=== PATIENT | male | born 1945 | race Caucasian/White ===

== ENCOUNTER 2016-12-24 12:27 | Outpatient (CLI) | payer OTHER ==
[2013-01-04 12:11] VITALS: TEMP 96.4
[2013-11-07 16:46] VITALS: BMI 23.6
--- NOTE | 2016-12-24 13:12 | DI ---
EXAM: Two views of the chest. History: Cough. Comparison: Chest radiograph 11/08/2013 Findings: Heart size is normal. No focal consolidation. No appreciable pleural fluid and no pneum othorax. No acute osseous abnormalities. Impression: No acute cardiopulmonary process.
== END 2016-12-24 12:28 | disposition home or self-care (01) ==
LOC: RAD 12:27
PROVIDERS: ATTEND Internal Medicine
DX: R05 Cough (principal); F17.210 Nicotine dependence, cigarettes, uncomplicated

== ENCOUNTER 2017-10-30 06:42 | Outpatient (CLI) | payer OTHER ==
[2013-01-04 12:11] VITALS: TEMP 96.4
[2013-11-07 16:46] VITALS: BMI 23.6
--- NOTE | 2017-10-30 12:39 | STRESSECHO ---
Date of Test: 10/30/17 Reason for Exam: CHEST PAIN, HYPERTENSION Ordering Physician: DR. NAT HERNANDEZ Current Medications: LISINOPRIL, HCTZ Physical Findings: S1, S2, NO S3 Resting EKG: SINUS RHYTHM/ NO ACUTE CHANGES Target Heart Rate: 127/150 S-T SEGMENT STAGE MPH/GRADE HEART RATE BPM BLOOD PRESSURE MMHG RHYTHM +/- ELEVATION DEPRESSION SYMPTOMS,COMMENTS At Rest 57 118/80 SR X NONE 1 1.7/10% 110 148/80 SR X NONE 2 2.5/12% 3 3.4/14% 4 4.2/16% 5 5.0/18% Immediately after 135 SR X SHORT OF AIR Durations of Exercise: 4:30 Maximum Heart Rate Reached: 135 Reason for Termination: SHORT OF AIR 2 MINUTES POST EXERCISE: HR 80 BPM, BP 162/98 MMHG, SR, +/-, NO COMMENTS 4 MINUTES POST EXERCISE: HR 60 BPM, BP 138/70 MMHG, SR, +/-, NO COMMENTS INTERPRETATION: 97% OXYGEN SATURATION WITH EXERCISE ON ROOM AIR METS 7.0 1. NO EVIDENCE OF ISCHEMIA BY ST-T WAVE 2. NO CHEST PAIN OR DISCOMFORT OR TIGHTNESS 3. FEW PAC'S AND PVC'S NOTED 4. BLOOD PRESSURE RESPONSE: HYPERTENSION WITH EXERCISE NORMAL LEFT VENTRICULAR CONTRACTILITY--RESTING AND POST EXERCISE MTDD
--- NOTE | 2017-10-30 12:41 | ECHOSTRESS ---
Date of Exam: 10/30/17 Ordering Physician: DR. NAT HERNANDEZ Reason for Echo: CHEST PAIN, STRESS TEST--NO ISCHEMIA M-Mode Normal Adult Results LV Dimensions Normal Adult Results AoV Opening excursions >1.6 LVEDD-base- 3.5-5.8 Ao root dimensions 2.0-3.7 LVESD-base- 3.1-4.6 L. Atrium dimensions 1.9-3.8 Post. Wall thickness 0.8-1.1 IV septum (thickness) 0.7-1.2 Post. Wall excursion 0.72-1.3 Septal motion Systolic motion R. Ventricular cavity 1.5-2.0 LVEF 60% Paradoxical septal wall motion 2-D: NORMAL LEFT VENTRICULAR CONTRACTILITY--RESTING AND POST EXERCISE M-MODE: MV: AV: TV: PV: CHAMBER SIZE: WALL MOTION: NORMAL LEFT VENTRICULAR CONTRACTILITY--RESTING AND POST EXERCISE PERICARDIUM: INTERPRETATION: 1. NORMAL LEFT VENTRICULAR CONTRACTILITY--RESTING AND POST EXERCISE MTDD
== END 2017-10-30 06:43 | disposition home or self-care (01) ==
LOC: CAR 06:42
PROVIDERS: ATTEND Internal Medicine
DX: R07.9 Chest pain, unspecified (principal)

== ENCOUNTER 2017-11-08 06:39 | Outpatient (CLI) | payer OTHER ==
[2013-01-04 12:11] VITALS: TEMP 96.4
[2013-11-07 16:46] VITALS: BMI 23.6
--- NOTE | 2017-11-08 13:09 | ECHO2D ---
Date of Exam: 11/08/17 Ordering Physician: DR. NAT HERNANDEZ Room #: OP Reason for Echo: CHEST PAIN M-Mode Normal Adult Results LV Dimensions Normal Adult Results AoV Opening excursions >1.6 >1.6 LVEDD-base- 3.5-5.8 4.3 Ao root dimensions 2.0-3.7 3.5 LVESD-base- 3.1-4.6 L. Atrium dimensions 1.9-3.8 4.0 Post. Wall thickness 0.8-1.1 1.2 IV septum (thickness) 0.7-1.2 1.2 Post. Wall excursion 0.72-1.3 NORMAL Septal motion NORMAL Systolic motion R. Ventricular cavity 1.5-2.0 NORMAL LVEF 60% 50 TO 55% Paradoxical septal wall motion NORMAL 2-D : 2-D M Mode Echocardiogram was performed using apical four chamber and left parasternal long and short axis views. Mitral, tricuspid and aortic valves appear to be normal. Contractility of the left ventricle seems to be normal, so is the cavity size. Left atrial cavity size and aortic root appear to be normal. There is no pericardial effusion. There is no thrombus noted in the left ventricular or left aortic cavity. No mitral valve prolapse noted. M-MODE: MV: NORMAL AV: NORMAL TV: NORMAL PV: CHAMBER SIZE: BORDERLINE LEFT ATRIAL CAVITY WALL MOTION: NORMAL PERICARDIUM: NORMAL INTERPRETATION: 1. BORDERLINE LEFT VENTRICULAR HYPERTROPHY WITH BORDERLINE LEFT ATRIAL CAVITY ENLARGEMENT 2. NORMAL LEFT VENTRICULAR CONTRACTILITY 3. NORMAL VALVES MTDD
== END 2017-11-08 06:40 | disposition home or self-care (01) ==
LOC: CAR 06:39
PROVIDERS: ATTEND Internal Medicine
DX: R07.89 Other chest pain (principal)

== ENCOUNTER 2022-12-07 11:45 | Observation (INO) ==
[2022-12-07 11:51] VITALS: BMI 27.8
[2022-12-07 13:09] LABS: BASOPHILS % (AUTO) 0.2 % (0.0-3.0); HEMATOCRIT 47.1 % (42.0-52.0); IMMATURE GRANULOCYTE # (AUTO) 0.1 (0.0-1.0); IMMATURE GRANULOCYTE % (AUTO) 0.5 % (0.0-5.0); LYMPHOCYTES # (AUTO) 1.4 K/uL (0.60-3.4); LYMPHOCYTES % (AUTO) 14.9 (10.0-50.0); MEAN CORPUSCULAR HEMOGLOBIN 33.7 pg (27.0-31.0); MEAN CORPUSCULAR HGB CONC 36.1 (31.8-35.4); MEAN CORPUSCULAR VOLUME 93.3 fl (80.0-94.0); MONOCYTES # (AUTO) 0.2 K/uL (0.4-2.0); MONOCYTES % (AUTO) 2.2 (0-10); NEUTROPHILS # (AUTO) 7.5 K/ul (2.0-6.9); NEUTROPHILS % (AUTO) 82.2 % (42.2-75.2); PLATELET COUNT 289 10^3/uL (140-440); RDW COEFFICIENT OF VARIATION 11.7 % (11.6-14.8); RED BLOOD COUNT 5.05 10^6/ul (4.70-6.10); WHITE BLOOD COUNT 9.14 K/ul (4.2-10.2)
--- NOTE | 2022-12-07 13:15 | ED.PDOC ---
General ED Provider: Dr. JACK GREENBERG MD Chief Complaint: Fever Stated Complaint: fever Time Seen by Provider: 12/07/22 12:15 Information Source: Patient Primary Care Provider: NAT HERNANDEZ MD Nursing and Triage Documentation Reviewed and Agree: Yes Does patient meet sepsis criteria?: No System Inflammatory Response Syndrome: Not Applicable Sepsis Protocol: For patient's 13 years and over: Temp is 96.8 and below OR 101 and greater Pulse >90 BPM Resp >20/minute Acutely Altered Mental Status Are patient's symptoms suggestive of a new infection, such as: -Pneumonia -Skin, Soft Tissue -Endocarditis -UTI -Bone, Joint Infection -Implantable Device -Acute Abdominal Infection -Wound Infection -Meningitis -Blood Stream Catheter Infection -Unknown Miscellaneous Complaint Exam Febrile Illness/Adult Complaint/Exam Onset/Duration: ~3-4 days Symptoms Are: Still present Timing: Constant Highest Temperature Recorded: tactile Initial Severity: Mild Current Severity: Moderate Aggravating: Reports None Alleviating: Reports None Associated Signs and Symptoms: Reports Sore throat, Nausea, Vomiting, Chills and Diaphoresis Related History: Reports Similar episode (diverticulitis, 10-15 years ago ) Pseudomonas Risk Factors: Reports Chronic Lung Disease Serious Bacterial Infection Risk Factors: Reports None Current Antibiotic Use: No Last Time and Dose of Tylenol (acetaminophen): no Last Time and Dose of Motrin (ibuprofen): no Related Surgical History: None Differential Diagnoses: Abdominal Infection, Abdominal Abscess, Bacteremia, Fever of Unknown Origin, GI Disease, Neoplasm, Pneumonia, Pyelonephritis, Sepsis and Viremia Review of Systems Review Of Systems Constitutional: Reports Chills, Diaphoresis, Fever, Malaise, Weakness, Sweats and Loss of appetite Ears, Nose, Mouth, Throat: Reports Throat pain GI: Reports Abdominal pain, Diarrhea, Nausea, Poor appetite and Vomiting Neurological: Reports Weakness (generalized) All Other Systems: Reviewed and Negative [facility] Medical History Elevated liver function tests R79.89 - Other specified abnormal findings of blood chemistry (ICD-10) SOB (shortness of breath) on exertion R06.02 - Shortness of breath (ICD-10) Urolithiasis N20.9 - URINARY CALCULUS, UNSPECIFIED (ICD-10) Family History FATHER Cardiac abnormality Alzheimer's dementia Mother Myocardial infarction Social History Smoking and tobacco status: Former smoker Quit date: 07/08/18 Tobacco: How many years used: 15 Alcohol intake: former Substance use type: does not use Special amilcar needs: No Agree to transfusion: Yes Adopted: No Caregiver/support person: No Foster care: No Household members: spouse Housing: house Marital status: M Lives independently: Yes Number of children: 2 service: Yes status: retired branch: [employer] retirement: No Current occupational status: retired Current occupational exposures/hazards: No History of recent travel: No Sexually active: No Current gender identity: male Seatbelt use: always Helmet use: No Drives intoxicated or rides with intoxicated set key driver: No Water heater temperature set < 120 degrees: Yes Working smoke detector in home: Yes Fire extinguisher in home: Yes Carbon monoxide detector in home: Yes Surgical History History of back surgery Z98.890 - Other specified postprocedural states (ICD-10) History of total right hip replacement Z96.641 - Presence of right artificial hip joint (ICD-10) Physical Exam Physical Exam Appearance: Reports Ill-appearing and Well-nourished Ill-appearing: Moderate Pain Distress: None Eyes: Reports TRU, EOMI and Conjunctiva clear ENT: Reports Ears normal and Nose normal Neck: Nonsupple (normal age-appropriate external appearance) Respiratory: Reports Airway patent, Breath sounds clear, Breath sounds equal and Respirations nonlabored Cardiovascular: Reports RRR GI/: Reports Soft, Nontender and Bowel sounds normal Musculoskeletal: Reports ROM intact Skin: Reports Warm, Dry and Normal color Neurological: Reports Sensation intact, Motor intact, Cranial nerves intact, Alert and Oriented Psychiatric: Reports Affect appropriate and Mood appropriate Critical Care Note Critical Care Note Total Critical Care Time (mins): 0 Course Course 12/08/22 05:10 12/08/22 05:10 Orders, Labs, Meds: Lab Review 12/07/22 12/07/22 12/07/22 12:55 13:05 14:32 WBC 9.14 RBC 5.05 Hgb 17.0 Hct 47.1 MCV 93.3 MCH 33.7 H MCHC 36.1 H RDW Coeff of Catarina 11.7 Plt Count 289 Immature Gran % (Auto) 0.5 Neut % (Auto) 82.2 H Lymph % (Auto) 14.9 [place] % (Auto) 2.2 Eos % (Auto) 0.0 Baso % (Auto) 0.2 Neut # (Auto) 7.5 H Lymph # (Auto) 1.4 [place] # (Auto) 0.2 L Eos # (Auto) 0.0 Baso # (Auto) 0.0 Immature Gran # (Auto) 0.1 Puncture Site Base Excess O2 Saturation ABG pH ABG pCO2 ABG pO2 ABG HCO3 ABG Total CO2 [place] Test Hemoglobin Oxyhemoglobin Carboxyhemoglobin Total Hemoglobin FiO2 % Sodium 136.1 Potassium 4.11 Chloride 96.3 L Carbon Dioxide 19.5 L Anion Gap 24.41 BUN 27.2 H Creatinine 1.84 H Estimated GFR (MDRD) 36.00 BUN/Creatinine Ratio 14.78 Glucose 216.1 H Lactic Acid 5.15 H Calcium 9.87 Magnesium 2.19 Total Bilirubin 1.52 H AST 51.0 ALT 81.1 H Alkaline Phosphatase 105.1 Total Protein 10.01 H Albumin 5.40 H Globulin 4.61 Albumin/Globulin Ratio 1.17 Lipase 64.6 Procalcitonin 0.06 H Urine Color Yellow Urine Clarity Slightly Urine pH 5.0 Ur Specific [place] >=1.030 Urine Protein 2+ H Urine Glucose (UA) Negative Urine Ketones 2+ H Urine Blood Trace-intact H Urine Nitrite Negative Urine Bilirubin 2+ H Urine Urobilinogen 0.2 Ur Leukocyte Esterase Negative Urine Microscopic RBC 10-20 Urine Microscopic WBC 0-2 Ur Squamous Epith Cells 0-2 Urine Bacteria Trace Hyaline Casts 20-30 Urine Mucus 1+ Influ A Molecular Assay Negative by naat Influ B Molecular Assay Negative by naat SARS CoV-2 RNA Rapid TY Negative 12/07/22 12/07/22 18:30 19:28 WBC RBC Hgb Hct MCV MCH MCHC RDW Coeff of Catarina Plt Count Immature Gran % (Auto) Neut % (Auto) Lymph % (Auto) [place] % (Auto) Eos % (Auto) Baso % (Auto) Neut # (Auto) Lymph # (Auto) [place] # (Auto) Eos # (Auto) Baso # (Auto) Immature Gran # (Auto) Puncture Site Rr Base Excess -1.5 O2 Saturation 95.4 ABG pH 7.51 H* ABG pCO2 27.0 L ABG pO2 70.0 L ABG HCO3 21.5 ABG Total CO2 22.3 [place] Test Pos Hemoglobin 1.2 Oxyhemoglobin 94.2 L Carboxyhemoglobin 2.0 H Total Hemoglobin 16.3 FiO2 % 21.0 Sodium Potassium Chloride Carbon Dioxide Anion Gap BUN Creatinine Estimated GFR (MDRD) BUN/Creatinine Ratio Glucose Lactic Acid 2.75 H Calcium Magnesium Total Bilirubin AST ALT Alkaline Phosphatase Total Protein Albumin Globulin Albumin/Globulin Ratio Lipase Procalcitonin Urine Color Urine Clarity Urine pH Ur Specific [place] Urine Protein Urine Glucose (UA) Urine Ketones Urine Blood Urine Nitrite Urine Bilirubin Urine Urobilinogen Ur Leukocyte Esterase Urine Microscopic RBC Urine Microscopic WBC Ur Squamous Epith Cells Urine Bacteria Hyaline Casts Urine Mucus Influ A Molecular Assay Influ B Molecular Assay SARS CoV-2 RNA Rapid TY Orders Category Date Time Status ABG DRAW REQUEST Stat CARDIO 12/07/22 19:28 Completed Saline Lock [ED IV/MEDIPORT/POWERPORT] .ONCE EMERGENCY 12/07/22 14:22 Active ABG COOX Stat LAB 12/07/22 19:28 Completed CBC W/ AUTO DIFF Stat LAB 12/07/22 13:05 Completed CMP [COMPREHENSIVE METABOLIC PANEL] Stat LAB 12/07/22 13:05 Completed COVID [SARS COV-2 RNA RAPID TY] Stat LAB 12/07/22 12:55 Completed FLU A & B MOLECULAR [FLU A/B MOLECULAR] Stat LAB 12/07/22 12:55 Completed LACTIC ACID Stat LAB 12/07/22 13:05 Completed LACTIC ACID Stat LAB 12/07/22 18:30 Completed LIPASE Stat LAB 12/07/22 13:05 Completed PROCALCITONIN Stat LAB 12/07/22 13:05 Completed RAPID STREP SCREEN [MOLECULAR GROUP A STREP] Stat LAB 12/07/22 13:36 Completed URINALYSIS C & S IF INDICATED Stat LAB 12/07/22 14:32 Completed 0.9 % Sodium Chloride [Saline Flush] Meds 12/07/22 14:22 Active 1 syr IVF PRN PRN Ondansetron HCl/Pf [Zofran 4 mg/2 ml] Meds 12/07/22 14:22 Discontinued 4 mg IVP ONCE ONE Promethazine HCl [Phenergan 25 mg/ml Vial] Meds 12/07/22 17:06 Discontinued 25 mg IM ONCE ONE Sodium Chloride 0.9% [Sodium Chloride] 1,000 ml Meds 12/07/22 14:22 Discontinued IV BOLUS CHEST, 2 VIEWS PA & LAT Stat RADS 12/07/22 12:[address] ABDOMEN/PELVIS WO CONTRAST Stat RADS 12/07/22 14:23 Completed Medications Generic Name Dose Route Start Last Admin Trade Name Ana PRN Reason Stop Dose Admin Acetaminophen 650 mg 12/07/22 21:16 Acetaminophen 325 Mg Tablet PO Q4H PRN Mild Pain Gabapentin 300 mg 12/08/22 09:00 Gabapentin 300 Mg Capsule PO QID LACY Lactated Ringer's 1,000 mls @ 125 mls/hr 12/07/22 21:30 12/08/22 05:21 Lactated Ringers IV 125 mls/hr .Q8H LACY Administration Mirtazapine 60 mg 12/07/22 21:30 12/07/22 22:15 Mirtazapine 15 Mg Tablet PO 60 mg BEDTIME LACY Administration Ondansetron HCl 4 mg 12/07/22 21:19 12/07/22 22:19 Ondansetron Hcl/Pf 4 Mg/2 Ml Sdv IVP 4 mg Q6H PRN Administration Nausea / Vomiting Sodium Chloride 1 syr 12/07/22 14:22 0.9% Sodium Chloride 10 Ml Disp.Syrin IVF PRN PRN To flush IV Temazepam 30 mg 12/07/22 21:30 12/07/22 22:15 Temazepam 15 Mg Capsule PO 30 mg BEDTIME LACY Administration Discontinued Medications Generic Name Dose Route Start Last Admin Trade Name Ana PRN Reason Stop Dose Admin Sodium Chloride 1,000 mls @ 1,000 mls/hr 12/07/22 14:22 12/07/22 14:54 Sodium Chloride IV 12/07/22 15:21 1,000 mls/hr BOLUS STA Administration Ondansetron HCl 4 mg 12/07/22 14:22 12/07/22 14:54 Ondansetron Hcl/Pf 4 Mg/2 Ml Sdv IVP 12/07/22 14:23 4 mg ONCE ONE Administration Promethazine HCl 25 mg 12/07/22 17:06 12/07/22 17:18 Promethazine Inj 25 Mg/Ml IM 12/07/22 17:07 25 mg ONCE ONE Administration Vital Signs: Temp Pulse Resp BP Pulse Ox 12/07/22 11:48 97.8 F 84 20 158/90 H 97 CXR reports "No acute process". CT Abdomen/Pelvis reported "No acute abnormality in the abdomen or pelvis. Hepatic and left renal cysts. Diverticulosis. Prostatic enlargement. Atherosclerosis. Discharge Plan Discharge Patient Disposition: ADMITTED INPATIENT Discharge Problem: Dehydration Did you review [place] PRICING SPECIALIST for ALL controlled substances?: Not Applicable ED Provider: JACK GREENBERG Physician Progress Note: []
[2022-12-07 13:20] LABS: MOLECULAR FLU A NEGATIVE BY NAAT (NEGATIVE); MOLECULAR FLU B NEGATIVE BY NAAT (NEGATIVE)
[2022-12-07 13:22] LABS: ALANINE AMINOTRANSFERASE 81.1 U/L (0-50); ALBUMIN 5.4 g/dL (3.5-5.0); ALKALINE PHOSPHATASE 105.1 U/L (56-119); BILIRUBIN,TOTAL 1.52 mg/dL (0.2-1.3); BLOOD UREA NITROGEN 27.2 mg/dL (9-20); CALCIUM 9.87 mg/dL (8.4-10.2); CARBON DIOXIDE 19.5 mmol/L (22-30.0); CHLORIDE 96.3 mmol/L (98-107); CREATININE 1.84 mg/dL (0.60-1.10); GLUCOSE 216.1 mg/dL (74-106); LIPASE 64.6 U/L (23-300); POTASSIUM 4.11 mmol/L (3.5-5.1); SODIUM 136.1 mmol/L (134.5-145); TOTAL PROTEIN 10.01 g/dL (6.3-8.2)
--- NOTE | 2022-12-07 13:28 | DI ---
EXAM: FRONTAL AND LATERAL VIEWS OF THE CHEST. HISTORY: Cough. COMPARISON: Chest radiograph 12/24/2016. FINDINGS: Atherosclerotic calcifications of the aorta. Normal heart size. No acute consolidation. No pleural effusion or pneumothorax. No acute osseous abnormality. IMPRESSION: No acute process.
[2022-12-07 14:06] LABS: SARS COV-2 RNA RAPID NAAT NEGATIVE (NEGATIVE)
[2022-12-07] MEDS ORDERED: SODIUM CHLORIDE 1,000 ML IV STA (14:22)
[2022-12-07] MEDS ORDERED: ZOFRAN 4 MG/2 ML IVP ONE (14:22)
--- NOTE | 2022-12-07 15:07 | CT ---
EXAM: CT ABDOMEN WITHOUT CONTRAST. CT PELVIS WITHOUT CONTRAST. HISTORY: Abdominal pain, nausea, vomiting, diarrhea. COMPARISON: 01/04/2013. TECHNIQUE: Multiple axial images of the abdomen and pelvis were obtained without intravenous contras t. Images were reformatted in the sagittal and coronal plane. FINDINGS: Please note that evaluation of the abdominal and pelvic structures is limited due to lack of intravenous contrast. No acute abnormality in the lung bases. Right hip arthroplasty hardware noted. Degenerative changes in the spine, greatest at L5-S1 Calcified granulomatous changes in the liver and spleen. There are multiple hepatic cysts measuring up to 2.8 cm right lobe which were present previously although have increased in size. The gallbladd er, pancreas, spleen, adrenal glands demonstrate no acute abnormality. Homogeneous fluid density partially exophytic left renal lesion measures up to 3.8 cm in the lower po le on axial image 80 which was present previously although has increased in size. No calcified renal stones or hydronephrosis. There is mild bilateral perinephric stranding which is stable, suggesting chronic renal disease. There is no bowel obstruction or acute inflammation. Probable normal appendix. Mild diverticulosis. Bladder not well distended. Prostate mildly enlarged. No free fluid or free air. Nonenlarged lymph nodes in the mesentery and upper abdomen. Atherosclerotic calcifications present without aneurysm. Tiny fatty umbilical hernia present. Suspect previous left inguinal hernia repair. IMPRESSION: 1. No acute abnormality in the abdomen or pelvis. 2. Hepatic and left renal cysts. 3. Diverticulosis. 4. Prostatic enlargement. 5. Atherosclerosis. All CT scans are performed using dose optimization techniques as appropriate to the performed exam an d include at least one of the following: Automated exposure control, adjustment of the mA and/or kV according t o size, and the use of iterative reconstruction technique.
[2022-12-07 15:19] LABS: BILIRUBIN,URINE 2+ (NEGATIVE); CLARITY,URINE Slightly (CLEAR); COLOR,URINE Yellow (YELLOW); GLUCOSE, URINE (UA) Negative (NEGATIVE); KETONES,URINE 2+ (NEGATIVE); LEUKOCYTE ESTERASE ,URINE Negative (NEGATIVE); NITRITE,URINE Negative (NEGATIVE); PROTEIN,URINE 2+ (NEGATIVE); URINE, BLOOD Trace-intact (NEGATIVE); UROBILINOGEN,URINE 0.2 (0.2)
[2022-12-07 15:25] LABS: BACTERIA,URINE TRACE (NOT PRESENT); HYALINE CASTS, URINE 20-30 (NOT PRESENT); MUCUS,URINE 1+ (NOT PRESENT); SQUAMOUS EPITHELIAL CELL,UR 0-2 (0-5); URINE WBC, MICROSCOPIC 0-2 (0-2)
[2022-12-07] MEDS ORDERED: PHENERGAN 25 MG/ML VIAL IM ONE (17:06)
[2022-12-07 20:23] LABS: ABG PH 7.51 (7.35-7.45); BEecf -1.5 (-2.0-3.0); HCO3 21.5 (21-28)
[2022-12-07 20:24] LABS: MetHb 1.2 (0-1.5); TCO2 22.3 (19-24); sO2 95.4 % (94-98); tHb 16.3 g/dl (11.7-17.4)
[2022-12-07 20:25] LABS: ABG O2 HGB 94.2 % (95-100)
[2022-12-07] MEDS ORDERED: TYLENOL PO PRN (21:16)
[2022-12-07] MEDS ORDERED: ZOFRAN 4 MG/2 ML IVP PRN (21:19)
[2022-12-07] MEDS ORDERED: REMERON PO SCH (21:30)
[2022-12-07] MEDS ORDERED: RESTORIL PO SCH (21:30)
[2022-12-07] MEDS: LACTATED RINGERS 1,000 ML IV SCH (22:15)
[2022-12-08] MEDS: LACTATED RINGERS 1,000 ML IV SCH ×3 (05:21→12:19)
[2022-12-08 05:34] LABS: BASOPHILS % (AUTO) 0.2 % (0.0-3.0); HEMATOCRIT 40.6 % (42.0-52.0); HEMOGLOBIN 14.4 g/dl (14.0-18.0); IMMATURE GRANULOCYTE % (AUTO) 0.4 % (0.0-5.0); LYMPHOCYTES # (AUTO) 2.2 K/uL (0.60-3.4); LYMPHOCYTES % (AUTO) 20.6 (10.0-50.0); MEAN CORPUSCULAR HEMOGLOBIN 32.9 pg (27.0-31.0); MEAN CORPUSCULAR HGB CONC 35.5 (31.8-35.4); MEAN CORPUSCULAR VOLUME 92.7 fl (80.0-94.0); MONOCYTES # (AUTO) 0.6 K/uL (0.4-2.0); MONOCYTES % (AUTO) 5.8 (0-10); NEUTROPHILS # (AUTO) 7.9 K/ul (2.0-6.9); PLATELET COUNT 240 10^3/uL (140-440); RDW COEFFICIENT OF VARIATION 11.7 % (11.6-14.8); RED BLOOD COUNT 4.38 10^6/ul (4.70-6.10); WHITE BLOOD COUNT 10.77 K/ul (4.2-10.2)
[2022-12-08 05:49] LABS: ALBUMIN 4.47 g/dL (3.5-5.0); ALKALINE PHOSPHATASE 68.5 U/L (56-119); ASPARTATE AMINO TRANSFERASE 44.8 U/L (17-59); BILIRUBIN,TOTAL 1.43 mg/dL (0.2-1.3); BLOOD UREA NITROGEN 33.1 mg/dL (9-20); CALCIUM 8.94 mg/dL (8.4-10.2); CARBON DIOXIDE 24.5 mmol/L (22-30.0); CHLORIDE 102.6 mmol/L (98-107); CREATININE 1.39 mg/dL (0.60-1.10); GLUCOSE 128.1 mg/dL (74-106); POTASSIUM 3.98 mmol/L (3.5-5.1); SODIUM 134.8 mmol/L (134.5-145); TOTAL PROTEIN 7.97 g/dL (6.3-8.2)
[2022-12-08] MEDS: NEURONTIN PO SCH ×2 (09:03→14:45)
--- NOTE | 2022-12-08 09:04 | PCM.SS ---
Provider Provider: OVI JAIN PA-C, [facility] Admission Date Admission Date: 12/07/22 Discharge Date Discharge Date: 12/08/22 Primary Care Physician Primary Care Physician: NAT HERNANDEZ MD Chief Complaint Reason For Visit: DEHYDRATION, DIARRHEA History of Present Illness History of Present Illness: Admitted 12/07/22 20:50, this 77 year old /WHITE/M with pmhx of hypertension, anxiety, depression, b 12 deficiency, history of alcohol abuse, and COPD who presented to the ER for not feeling well for the past week. He states that he has had a subjective fever, chills, diaphoresis on and off. He started out with upper respiratory symptoms and a headache and then started having diarrhea and vomiting within the last couple days. He has had decreased intake in the last couple days with that as well. He denies blood in his stool. No chest pain. He has a history of diverticulitis and thought it could be due to that but that the symptoms felt different. He noticed that his urine was dark as well. In the ER he had a CT abdomen and pelvis and a chest x-ray which were negative for any acute abnormalities. However his labs were indicative of dehydration. His creatinine was 1.84, lactic was over 5 hemoglobin concentrated at 17, liver enzymes mildly bumped, and protein and albumin elevated as well. He was given a liter of fluids, Zofran IV and Phenergan IM. He had great improvement with this. He was admitted to [facility] and observation. He has only needed 1 dose of Zofran since being admitted. On evaluation this morning patient is feeling significantly better. He has not had no nausea or vomiting. He had 1 bowel movement this morning but states it was "hardly anything". He does feel as though trying to eat something. We will do a diet challenge. His labs are looking less concentrated. Protein and albu min are improved, hemoglobin improved. His lactic acid and Pro-Tree are normal. Creatinine and BUN are trending down towards his baseline. [facility] Medical History (Updated 12/08/22 @ 09:18 by OVI JAIN PA-C) Eczema L30.9 - Dermatitis, unspecified (ICD-10) Elevated liver function tests R79.89 - Other specified abnormal findings of blood chemistry (ICD-10) Former smoker, stopped smoking in distant past Z87.891 - Personal history of nicotine dependence (ICD-10) Urolithiasis N20.9 - URINARY CALCULUS, UNSPECIFIED (ICD-10) Surgical History History of back surgery Z98.890 - Other specified postprocedural states (ICD-10) History of total right hip replacement Z96.641 - Presence of right artificial hip joint (ICD-10) Family History FATHER Cardiac abnormality Alzheimer's dementia Mother Myocardial infarction Social History Smoking and tobacco status: Former smoker Quit date: 07/08/18 Tobacco: How many years used: 15 Alcohol intake: former Substance use type: does not use Special amilcar needs: No Agree to transfusion: Yes Adopted: No Caregiver/support person: No Foster care: No Household members: spouse Housing: house Marital status: M Lives independently: Yes Number of children: 2 service: Yes status: retired branch: [employer]: No Current occupational status: retired Current occupational exposures/hazards: No History of recent travel: No Sexually active: No Current gender identity: male Seatbelt use: always Helmet use: No Drives intoxicated or rides with intoxicated school bus driver: No Water heater temperature set < 120 degrees: Yes Working smoke detector in home: Yes Fire extinguisher in home: Yes Carbon monoxide detector in home: Yes Medications Mecications: Medications at Discharge (Home Meds & RX) cholecalciferol (vitamin D3) 50 mcg (2,000 unit) tablet (Vitamin D3) 50 mcg PO DAILY 05/30/21 gabapentin 300 mg tablet 300 mg PO QID 05/30/21 temazepam 30 mg capsule 30 mg PO BEDTIME 05/30/21 lisinopril 20 mg-hydrochlorothiazide 12.5 mg tablet 1 tab PO BID 08/21/22 mirtazapine 30 mg tablet 60 mg PO QDAY 08/21/22 Allergies Allergies Allergy/AdvReac Type Severity Reaction Status Date / Time hydromorphone [From Dilaudid] AdvReac Unknown Unknown Verified 08/21/22 13:44 Review of Systems Constitutional: Reports Fever, Fatigue, Chills and Sweats; Denies Weakness Head: Reports Normocephalic and Atraumatic Eyes: Denies Vision Changes Ears: Denies Pain or Drainage Nose: Denies Bleeding, Post Nasal Drip or Congestion Mouth: Denies Sores or Pain Throat: Denies Sore Throat Cardiovascular: Reports Diaphoresis; Denies Chest pain or Edema Respiratory: Reports Cough; Denies Shortness of air Gastrointestinal: Reports Nausea, Vomiting and Diarrhea; Denies Abdominal pain Genitourinary: Denies Dysuria or Hematuria Dermatologic: Denies Rashes Hematology: Denies Anemia Neurological: Reports Headache; Denies Dizziness, Syncope or Loss of Conciousness Psychiatric: Reports Depression; Denies Suicidal Physical Examination Appearance: Positive Well-appearing, Well-nourished, No Apparent Distress and Alert and Oriented x3 Head: Positive Normocephalic and Atraumatic Eyes: Positive EOMI and Conjunctiva Clear Neck: Positive Supple and Trachea Midline Heart: Positive RRR Respiratory: Positive Breath Sounds Clear, Bilaterally and Breath Sounds Equal; Negative Crackles, Rhonchi or Wheezes GI/: Positive Soft, Nontender, Bowel sounds normal and No Distention Extremities: Negative Edema Neurological: Positive Cranial nerves intact, Alert and Oriented Psychiatric: Positive Normal Judgement, Normal Insight, Affect Appropriate and Mood Appropriate Vital Signs (Last 4 Hours) Vital Signs Last 4 Hours: Vital Signs: Last 4 Hours 12/08/22 05:14 12/08/22 06:57 Temperature 98.0 F Temperature Source Temporal Artery Scan Pulse Rate 63 Respiratory Rate 18 Blood Pressure 129/74 Blood Pressure Mean 92 Blood Pressure Location Left Arm Blood Pressure Position Supine O2 Sat by Pulse Oximetry 97 Oxygen Delivery Method Room Air Telemetry Type Remote Telemetry Telemetry Monitoring Continues Telemetry Heart Rate 63 EKG NE Interval 0.20 EKG QRS Interval 0.08 Telemetry Strip Reading SR Labs This Visit Labs This Visit: Labs This Visit 12/07/22 12/07/22 12/07/22 12:55 13:05 14:32 WBC 9.14 RBC 5.05 Hgb 17.0 Hct 47.1 MCV 93.3 MCH 33.7 H MCHC 36.1 H RDW Coeff of Catarina 11.7 Plt Count 289 Immature Gran % (Auto) 0.5 Neut % (Auto) 82.2 H Lymph % (Auto) 14.9 Burleigh % (Auto) 2.2 Eos % (Auto) 0.0 Baso % (Auto) 0.2 Neut # (Auto) 7.5 H Lymph # (Auto) 1.4 Burleigh # (Auto) 0.2 L Eos # (Auto) 0.0 Baso # (Auto) 0.0 Immature Gran # (Auto) 0.1 Puncture Site Base Excess O2 Saturation ABG pH ABG pCO2 ABG pO2 ABG HCO3 ABG Total CO2 Eitan Test Hemoglobin Oxyhemoglobin Carboxyhemoglobin Total Hemoglobin FiO2 % Sodium 136.1 Potassium 4.11 Chloride 96.3 L Carbon Dioxide 19.5 L Anion Gap 24.41 BUN 27.2 H Creatinine 1.84 H Estimated GFR (MDRD) 36.00 BUN/Creatinine Ratio 14.78 Glucose 216.1 H Hemoglobin A1c Lactic Acid 5.15 H Calcium 9.87 Magnesium 2.19 Total Bilirubin 1.52 H AST 51.0 ALT 81.1 H Alkaline Phosphatase 105.1 Total Protein 10.01 H Albumin 5.40 H Globulin 4.61 Albumin/Globulin Ratio 1.17 Lipase 64.6 Procalcitonin 0.06 H Urine Color Yellow Urine Clarity Slightly Urine pH 5.0 Ur Specific Eldred >=1.030 Urine Protein 2+ H Urine Glucose (UA) Negative Urine Ketones 2+ H Urine Blood Trace-intact H Urine Nitrite Negative Urine Bilirubin 2+ H Urine Urobilinogen 0.2 Ur Leukocyte Esterase Negative Urine Microscopic RBC 10-20 Urine Microscopic WBC 0-2 Ur Squamous Epith Cells 0-2 Urine Bacteria Trace Hyaline Casts 20-30 Urine Mucus 1+ Influ A Molecular Assay Negative by naat Influ B Molecular Assay Negative by naat SARS CoV-2 RNA Rapid TY Negative 12/07/22 12/07/22 12/08/22 18:30 19:28 05:10 WBC 10.77 H RBC 4.38 L Hgb 14.4 Hct 40.6 L D MCV 92.7 MCH 32.9 H MCHC 35.5 H RDW Coeff of Catarina 11.7 Plt Count 240 Immature Gran % (Auto) 0.4 Neut % (Auto) 73.0 Lymph % (Auto) 20.6 Burleigh % (Auto) 5.8 Eos % (Auto) 0.0 Baso % (Auto) 0.2 Neut # (Auto) 7.9 H Lymph # (Auto) 2.2 Burleigh # (Auto) 0.6 Eos # (Auto) 0.0 Baso # (Auto) 0.0 Immature Gran # (Auto) 0.0 Puncture Site Rr Base Excess -1.5 O2 Saturation 95.4 ABG pH 7.51 H* ABG pCO2 27.0 L ABG pO2 70.0 L ABG HCO3 21.5 ABG Total CO2 22.3 Eitan Test Pos Hemoglobin 1.2 Oxyhemoglobin 94.2 L Carboxyhemoglobin 2.0 H Total Hemoglobin 16.3 FiO2 % 21.0 Sodium 134.8 Potassium 3.98 Chloride 102.6 Carbon Dioxide 24.5 Anion Gap 11.68 BUN 33.1 H Creatinine 1.39 H Estimated GFR (MDRD) 50.00 BUN/Creatinine Ratio 23.81 Glucose 128.1 H D Hemoglobin A1c 5.54 Lactic Acid 2.75 H 1.37 Calcium 8.94 Magnesium Total Bilirubin 1.43 H AST 44.8 ALT 31.0 D Alkaline Phosphatase 68.5 D Total Protein 7.97 Albumin 4.47 Globulin 3.50 Albumin/Globulin Ratio 1.27 Lipase Procalcitonin < 0.05 Urine Color Urine Clarity Urine pH Ur Specific Eldred Urine Protein Urine Glucose (UA) Urine Ketones Urine Blood Urine Nitrite Urine Bilirubin Urine Urobilinogen Ur Leukocyte Esterase Urine Microscopic RBC Urine Microscopic WBC Ur Squamous Epith Cells Urine Bacteria Hyaline Casts Urine Mucus Influ A Molecular Assay Influ B Molecular Assay SARS CoV-2 RNA Rapid TY Microbiology This Visit 12/07/22 13:36 Throat Group A Strep Molecular Assay - Final Imaging Imaging: EXAM: CT ABDOMEN WITHOUT CONTRAST. CT PELVIS WITHOUT CONTRAST. HISTORY: Abdominal pain, nausea, vomiting, diarrhea. COMPARISON: 01/04/2013. TECHNIQUE: Multiple axial images of the abdomen and pelvis were obtained without intravenous contrast. Images were reformatted in the sagittal and coronal plane. FINDINGS: Please note that evaluation of the abdominal and pelvic structures is limited due to lack of intravenous contrast. No acute abnormality in the lung bases. Right hip arthroplasty hardware noted. Degenerative changes in the spine, greatest at L5-S1 Calcified granulomatous changes in the liver and spleen. There are multiple hepatic cysts measuring up to 2.8 cm right lobe which were present previously although have increased in size. The gallbladder, pancreas, spleen, adrenal glands demonstrate no acute abnormality. Homogeneous fluid density partially exophytic left renal lesion measures up to 3.8 cm in the lower pole on axial image 80 which was present previously although has increased in size. No calcified renal stones or hydronephrosis. There is mild bilateral perinephric stranding which is stable, suggesting chronic renal disease. There is no bowel obstruction or acute inflammation. Probable normal appendix. Mild diverticulosis. Bladder not well distended. Prostate mildly enlarged. No free fluid or free air. Nonenlarged lymph nodes in the mesentery and upper abdomen. Atherosclerotic calcifications present without aneurysm. Tiny fatty umbilical hernia present. Suspect previous left inguinal hernia repair. IMPRESSION: 1. No acute abnormality in the abdomen or pelvis. 2. Hepatic and left renal cysts. 3. Diverticulosis. 4. Prostatic enlargement. 5. Atherosclerosis. EXAM: FRONTAL AND LATERAL VIEWS OF THE CHEST. HISTORY: Cough. COMPARISON: Chest radiograph 12/24/2016. FINDINGS: Atherosclerotic calcifications of the aorta. Normal heart size. No acute consolidation. No pleural effusion or pneumothorax. No acute osseous abnormality. IMPRESSION: No acute process. Review Review Statement: I have independently reviewed and interpreted the labs/EKGs/imaging that were ordered by the ER provider. I have reviewed all outside records that are available currently in our EMR including imaging/notes/labs from previous visits. Plan Reccomendations/Plan: A&P: 1. TERESA, stage I in setting of dehydration and viral syndrome - Improving. LR at 125 ml/hr overnight, increase to 175. May have clear liquid diet as PO challenge. Zofran 4 mg IVP prn. Lactic acid normalized with fluids. Sepsis ruled out as cause. Will repeat BMP at 1400. 2. Dehydration in setting of viral syndrome - Improved, Plan as above. 3. Lactic acidosis, type II in setting of n/v, viral syndrome - LA resolved with fluids. 4. Hypertension - Held his HCTZ/lisinopril tab in setting of TERESA, however patient took his own medication from home this morning. 5. COPD - Listed in PMHX however not on any current treatment. 6. Anxiety - Continue mirtazapine at night. Patient is greatly improved. Not requiring any IV antiemetics. Wanting to eat this morning. We will do a p.o. challenge and if he tolerates it well expect discharge later this afternoon after some more fluids. We will repeat BMP at 1400 prior to discharge. Expect for it to be improved and at baseline. He will continue to progress his diet as tolerated. Push fluids. We will give Zofran O DT as needed for nausea, vomiting. Follow-up with PCP within 1 week. Patient is agreeable to plan of care. 1445: Patient's repeat BMP was improved. Creatinine 1.14, BUN 28, GFR increased to 63. He was able to tolerate a diet without any vomiting or nausea. He feels comfortable with discharge to home. We will send in Zofran ODT for him. Discharge diagnosis: 1. TERESA, stage I in setting of dehydration and viral syndrome - resolved 2. Dehydration in setting of viral syndrome - resolved 3. Lactic acidosis, type II in setting of n/v, viral syndrome - resolved 4. Hypertension - chronic, stable 5. COPD - chronic, stable 6. Anxiety - Chronic, stable Additional Planning: Case discussed with ED Physician, Dr. Hopkins. DVT Prophylaxis: Ambulation Advanced Care Plannin minutes spent discussing advance care planning. FULL CODE Admit to: Obs Discussed Plan of Care with Dr. Foster Hernandez. Review With Patient Reviewed with Patient and Family: Patient and family have been counseled on condition and care plan and have no immediate questions. I have personally discussed and reviewed the patient's visit/current labs/imaging/decision making with Dr. Foster Hernandez, my supervising attending. Total number of minutes spent with patient 85 min. More than 50% of the time spent with this patient was devoted to counseling and coordination of care. Time of Admission:12/07/22 20:50 Time of Discharge: 12/08/22 1500 Discharge Plan Discharge Discharge Orders: Discharge Patient (ONCE); Ordered 12/08/22 Ordered By: OVI JAIN Activity Restrictions/Additional Instructions: DISCHARGE TO HOME DIET: PROGRESS TOLERATED, PUSH FLUIDS ACTIVITY: TOLERATED DX: DEHYDRATION, VIRAL SYNDROME NEW PRESCRIPTIONS: ZOFRAN F/U WITH PCP WITHIN 1 WEEK Instructions: Dehydration (GEN) Patient Disposition: HOME SELF-CARE Prescriptions: New ondansetron 4 mg tablet,disintegrating 4 mg PO Q8H PRN (Reason: nausea and vomiting) Qty: 21 0RF Continued temazepam 30 mg Capsule 30 mg PO BEDTIME gabapentin 300 mg Tablet 300 mg PO QID cholecalciferol (vitamin D3) [Vitamin D3] 50 mcg (2,000 unit) Tablet 50 mcg PO DAILY lisinopril-hydrochlorothiazide 20-12.5 mg tablet 1 tab PO BID mirtazapine 30 mg tablet 60 mg PO QDAY Did you review [place] DIRECTOR NICU for ALL controlled substances?: Not Applicable Discussed opioids are addictive and Narcan is available by prescription or from pharmacy.: No Condition: Good
[2022-12-08 10:15] VITALS: RESP 17; TEMP 97.1
[2022-12-08 14:12] VITALS: BP 126/65
[2022-12-08 14:39] LABS: BLOOD UREA NITROGEN 28.4 mg/dL (9-20); CALCIUM 8.67 mg/dL (8.4-10.2); CARBON DIOXIDE 26.3 mmol/L (22-30.0); CHLORIDE 101.1 mmol/L (98-107); CREATININE 1.14 mg/dL (0.60-1.10); GLUCOSE 86.9 mg/dL (74-106); POTASSIUM 3.54 mmol/L (3.5-5.1); SODIUM 133.3 mmol/L (134.5-145)
== END 2022-12-08 15:21 | disposition home or self-care (01) ==
LOC: MEDSURG B 11:45 → ED 11:45 → MEDSURG B 21:20
PROVIDERS: ADMIT Hospitalist; ATTEND Physician Assistant
DX: Z51.81 Encounter for therapeutic drug level monitoring; L30.9 Dermatitis, unspecified; Z98.890 Other specified postprocedural states; R53.1 Weakness; J44.9 Chronic obstructive pulmonary disease, unspecified; R63.0 Anorexia; R10.9 Unspecified abdominal pain; E86.0 Dehydration; I10 Essential (primary) hypertension; Z20.822 Contact with and (suspected) exposure to COVID-19; N17.9 Acute kidney failure, unspecified; R06.02 Shortness of breath; N20.9 Urinary calculus, unspecified; Z79.899 Other long term (current) drug therapy; R19.7 Diarrhea, unspecified; R79.89 Other specified abnormal findings of blood chemistry; Z96.641 Presence of right artificial hip joint; Z87.891 Personal history of nicotine dependence; F41.9 Anxiety disorder, unspecified; B34.9 Viral infection, unspecified; E87.20 Acidosis, unspecified